=== PATIENT | male | born 1965 | race Caucasian/White ===

== ENCOUNTER 2022-06-11 07:23 | Outpatient (CLI) | payer BC, SELFPAY | END 2022-06-11 07:24 | disposition home or self-care (01) | LOC: NFLDREF 06-13 13:41 | PROVIDERS: PCP Family Medicine; Referring Provider Family Medicine; Visit Provider Family Medicine | DX: Z00.00 Encounter for general adult medical examination without abnormal findings (principal); E78.5 Hyperlipidemia, unspecified; E03.9 Hypothyroidism, unspecified; I10 Essential (primary) hypertension | CPT/HCPCS: 80053; 80061; 82043; 82570; 84443 ==

== ENCOUNTER 2022-10-27 07:30 | Outpatient (CLI) | payer BC, SELFPAY | END 2022-10-27 07:31 | disposition home or self-care (01) | LOC: NFLDREF 10-28 09:10 | PROVIDERS: PCP Family Medicine; Referring Provider Family Medicine; Visit Provider Family Medicine | DX: E03.9 Hypothyroidism, unspecified (principal) | CPT/HCPCS: 84439; 84443; 86376 ==

== ENCOUNTER 2022-12-16 07:31 | Outpatient (CLI) | payer BC, SELFPAY | END 2022-12-16 07:32 | disposition home or self-care (01) | LOC: NFLDREF 12-17 00:25 | PROVIDERS: PCP Family Medicine; Referring Provider Family Medicine; Visit Provider Family Medicine | DX: E03.9 Hypothyroidism, unspecified (principal) | CPT/HCPCS: 84439; 84443 ==

== ENCOUNTER 2023-02-23 08:16 | Outpatient (CLI) | payer BC, SELFPAY | END 2023-02-23 08:17 | disposition home or self-care (01) | LOC: NFLDREF 02-27 10:38 | PROVIDERS: PCP Family Medicine; Referring Provider Family Medicine; Visit Provider Family Medicine | DX: E03.9 Hypothyroidism, unspecified (principal); R53.83 Other fatigue | CPT/HCPCS: 84443 ==

== ENCOUNTER 2023-09-22 15:23 | Outpatient (CLI) | payer BC, SELFPAY | END 2023-09-22 15:24 | disposition home or self-care (01) | PROVIDERS: PCP Physician Assistant Medical; Visit Provider Physician Assistant Medical | DX: E03.9 Hypothyroidism, unspecified (principal); E78.5 Hyperlipidemia, unspecified; I10 Essential (primary) hypertension; Z12.5 Encounter for screening for malignant neoplasm of prostate | CPT/HCPCS: 80053; 80061; 84439; 84443; G0103 ==

== ENCOUNTER 2024-05-20 07:44 | Outpatient (CLI) | payer BC, SELFPAY | END 2024-05-20 07:45 | disposition home or self-care (01) | LOC: NFLDREF 05-21 03:27 | PROVIDERS: PCP Physician Assistant Medical; Referring Provider Physician Assistant Medical; Visit Provider Physician Assistant Medical | DX: E03.9 Hypothyroidism, unspecified (principal) | CPT/HCPCS: 84443 ==

== ENCOUNTER 2025-02-03 07:38 | Outpatient (CLI) | payer BC, SELFPAY | END 2025-02-03 07:39 | disposition home or self-care (01) | LOC: NFLDREF 02-16 01:35 | PROVIDERS: PCP Physician Assistant Medical; Referring Provider Physician Assistant Medical; Visit Provider Physician Assistant Medical | DX: E03.9 Hypothyroidism, unspecified (principal); E78.2 Mixed hyperlipidemia | CPT/HCPCS: 80053; 80061; 84439; 84443; G0103 ==